=== PATIENT | female | born 1985 | race African-American/Black ===

== ENCOUNTER 2021-10-17 14:53 | Outpatient (CLI) | payer BC, SELFPAY ==
--- NOTE | ~2021-10-17 | MM_ITS ---
EXAMINATION: MM screening am[facility] BI w [facility] HISTORY: Screening mammogram TECHNIQUE: Craniocaudal and mediolateral oblique 3-D tomosynthesis images were obtained and synthetic 2-D images were generated. CAD analysis was submitted and interpreted. COMPARISON: None, baseline BREAST PARENCHYMAL COMPOSITION: There are scattered areas of fibroglandular density. FINDINGS: There is no suspicious mass, calcification, or architectural distortion to suggest malignan cy in either breast. IMPRESSION: 1. No mammographic evidence of malignancy. 2. Recommend routine screening mammography beginning at age 40. BI-RADS Category 1: Negative Reviewed, dictated and finalized at location A.
== END 2021-10-17 14:54 | disposition home or self-care (01) ==
LOC: ANHIMG 14:57
PROVIDERS: Visit Provider Internal Medicine
DX: Z12.31 Encounter for screening mammogram for malignant neoplasm of breast (principal)
CPT/HCPCS: 77063; 77067

== ENCOUNTER 2022-12-23 11:20 | Emergency (ER) | payer SELFPAY ==
--- NOTE | ~2022-12-23 | XR_ITS ---
XR ankle LT min 3V 12/23/2022 12:03 INDICATION: Left ankle pain PROCEDURE: 4 views left COMPARISON: No prior studies for comparison. FINDINGS: Fracture, dislocation or subluxation is not identified. The soft tissues appear within norm al limits. No foreign bodies are identified. Note is made of a screw in the first metatarsal. IMPRESSION: 1: NO ACUTE BONE OR JOINT ABNORMALITY IDENTIFIED. Reviewed, dictated and finalized at location B.
[2022-12-23 11:30] VITALS: BP 132/86; PULSE 92; RESP 16; TEMP 36.3; O2SAT 100
--- NOTE | 2022-12-23 12:25 | ED.LOWEXIN ---
HPI - Extremity Injury (Lower) General Chief Complaint: Extremity Injury, Lower Stated Complaint: lt/rt ankle injury Time Seen by Provider: 12/23/22 12:23 Source: patient Mode of arrival: ambulatory Limitations: no limitations History of Present Illness HPI Narrative: 37-year-old female presenting for complaint of bilateral ankle pain, left worse than right after injury yesterday. She states she fell walking out of her house. She landed on the left knee causing an abrasion, and twisted the left ankle, and caused mild pain to the right index finger only with gripping object. Endorses swelling to the left foot and ankle, pain is worse with walking. Rates pain 8/10. Denies bruising, numbness, tingling, weakness of the extremities. She has taken ibuprofen for pain. Utilizing wheelchair. Related Data Home Medications Medication Instructions Recorded Confirmed albuterol sulfate 90 mcg/actuation 2 puff inhalation QID 12/23/22 12/23/22 aerosol inhaler benzonatate 100 mg capsule 100 mg PO DAILY 12/23/22 12/23/22 ergocalciferol (vitamin D2) 1,250 1,250 mcg PO DAILY 12/23/22 12/23/22 mcg (50,000 unit) capsule famciclovir 500 mg tablet 500 mg PO DAILY 12/23/22 12/23/22 ferrous sulfate 325 mg (65 mg 325 mg PO DAILY 12/23/22 12/23/22 iron) tablet (FeroSul) fluticasone furoate 200 200 inh inhalation DAILY 12/23/22 12/23/22 mcg-vilanterol 25 mcg/dose inhalation powder (Breo Ellipta) hydrocortisone 2.5 % topical cream 2.5 applic topical BID 12/23/22 12/23/22 ipratropium 0.5 mg-albuterol 3 mg 3 ml inhalation PRN PRN Shortness 12/23/22 12/23/22 (2.5 mg base)/3 mL nebulization Of Breath soln metronidazole 500 mg tablet 500 mg PO DAILY 12/23/22 12/23/22 nystatin-triamcinolone 100,000 0.1 applic topical DAILY 12/23/22 12/23/22 unit/gram-0.1 % topical ointment omeprazole 40 mg capsule,delayed 40 mg PO DAILY 12/23/22 12/23/22 release sertraline 100 mg tablet 100 mg PO DAILY 12/23/22 12/23/22 sertraline 50 mg tablet 50 mg PO DAILY 12/23/22 12/23/22 tizanidine 4 mg tablet 4 mg PO DAILY 12/23/22 12/23/22 tramadol 50 mg tablet 50 mg PO DAILY 12/23/22 12/23/22 trazodone 100 mg tablet 100 mg PO HS 12/23/22 12/23/22 Allergies Allergy/AdvReac Type Severity Reaction Status Date / Time amoxicillin [From Amoxil] Allergy Rash Verified 12/23/22 11:31 bupropion Allergy Hives Verified 12/23/22 11:31 Review of Systems Review of Systems: CONSTITUTIONAL: Denies body aches, fever, chills EYES: Denies visual changes ENT: Denies rhinorrhea, congestion CARDIOVASCULAR: Denies chest pain, palpitations, or edema. RESPIRATORY: Denies cough or dyspnea. GASTROINTESTINAL: Denies abdominal pain, nausea, vomiting, or diarrhea. SKIN: Denies rash, itching, or wounds. MUSCULOSKELETAL: per hPI NEUROLOGIC: Denies headache, numbness, tingling, or weakness. All systems reviewed & are unremarkable except as noted in HPI and below PMFSH Past Medical History Medical History (Updated 12/23/22 @ 13:15 by Isabel Renee, LORA) No pertinent past medical history Comments At time of signature, I have reviewed and agree with nursing past medical, surgical, social and family history unless otherwise noted. Please see nursing chart for further information. There is no relevant family history pertinent to the presenting complaint Exam Narrative: GENERAL: Well-appearing, no acute distress. HEAD: Normocephalic, atraumatic. EYES: conjunctivae clear NECK: Supple. CHEST: Speaks in full sentences. No respiratory distress. HEART: Regular rate and rhythm. Normal and equal peripheral pulses. EXTREMITIES: Bilateral feet with normal strength and sensation, left ankle slightly limited range of motion with flexion/extension/rotation, endorses pain with movement. Moderate lateral ankle swelling, tender with palpation to anterior and lateral aspects of malleolus. No ecchymosis. No open wounds or obvious deformity; alignment normal, pulse palpable and e
== END 2022-12-23 12:40 | disposition home or self-care (01) ==
PROVIDERS: Emergency Provider Nurse Practitioner Family; PCP Internal Medicine
DX: S93.402A Sprain of unspecified ligament of left ankle, initial encounter (principal); W19.XXXA Unspecified fall, initial encounter
CPT/HCPCS: 73610; 99213; G0463

== ENCOUNTER 2025-02-03 09:08 | Emergency (ER) | payer OTHER, SELFPAY ==
--- NOTE | 2025-02-03 09:20 | ED.URI ---
HPI - URI/Sore Throat General Chief Complaint: Upper Respiratory Infection Stated Complaint: LOSING VOICE/HEADACHE Source: patient Mode of arrival: ambulatory Limitations: no limitations Related Data Home Medications ?Medication ?Instructions ?Recorded ?Confirmed ?Last Taken ?Type albuterol sulfate 90 mcg/actuation 2 puff inhalation QID 12/23/22 12/23/22 Unknown History aerosol inhaler benzonatate 100 mg capsule 100 mg PO DAILY 12/23/22 12/23/22 Unknown History ergocalciferol (vitamin D2) 1,250 1,250 mcg PO DAILY 12/23/22 12/23/22 Unknown History mcg (50,000 unit) capsule famciclovir 500 mg tablet 500 mg PO DAILY 12/23/22 12/23/22 Unknown History ferrous sulfate 325 mg (65 mg 325 mg PO DAILY 12/23/22 12/23/22 Unknown History iron) tablet (FeroSul) fluticasone furoate 200 200 inh inhalation DAILY 12/23/22 12/23/22 Unknown History mcg-vilanterol 25 mcg/dose inhalation powder (Breo Ellipta) hydrocortisone 2.5 % topical cream 2.5 applic topical BID 12/23/22 12/23/22 Unknown History ipratropium 0.5 mg-albuterol 3 mg 3 ml inhalation PRN PRN Shortness 12/23/22 12/23/22 Unknown History (2.5 mg base)/3 mL nebulization Of Breath soln metronidazole 500 mg tablet 500 mg PO DAILY 12/23/22 12/23/22 Unknown History nystatin-triamcinolone 100,000 0.1 applic topical DAILY 12/23/22 12/23/22 Unknown History unit/gram-0.1 % topical ointment omeprazole 40 mg capsule,delayed 40 mg PO DAILY 12/23/22 12/23/22 Unknown History release sertraline 100 mg tablet 100 mg PO DAILY 12/23/22 12/23/22 Unknown History sertraline 50 mg tablet 50 mg PO DAILY 12/23/22 12/23/22 Unknown History tizanidine 4 mg tablet 4 mg PO DAILY 12/23/22 12/23/22 Unknown History tramadol 50 mg tablet 50 mg PO DAILY 12/23/22 12/23/22 Unknown History trazodone 100 mg tablet 100 mg PO HS 12/23/22 12/23/22 Unknown History Allergies Allergy/AdvReac Type Severity Reaction Status Date / Time amoxicillin (From Amoxil) Allergy Rash Verified 02/07/25 07:38 bupropion Allergy Hives Verified 02/07/25 07:38 Review of Systems Review of Systems: CONSTITUTIONAL: Denies body aches, fever, chills, or sweats. Reports EYES: Denies visual changes, redness, or discharge. ENT: Reports rhinorrhea, congestion, sore throat, or otalgia. CARDIOVASCULAR: Denies chest pain, palpitations, or edema. RESPIRATORY: Reports cough or dyspnea. GASTROINTESTINAL: Denies abdominal pain, nausea, vomiting, or diarrhea. GENITOURINARY: Denies dysuria or hematuria. SKIN: Denies rash, itching, or wounds. MUSCULOSKELETAL: Denies back pain, joint pain, or myalgia. NEUROLOGIC: Denies headache, numbness, tingling, or weakness. PSYCH: Denies depression or anxiety. [facility] Past Medical History Medical History (System 02/07/25 @ 07:38 by Ashley Arzate) No pertinent past medical history Comments At time of signature, I have reviewed and agree with nursing past medical, surgical, social and family history unless otherwise noted. Please see nursing chart for further information. There is no relevant family history pertinent to the presenting complaint. Exam Narrative: GENERAL: Well-appearing, well-nourished, and in no acute distress. EYES: EOMI. No redness or drainage. Conjunctivae normal. ENT: Mucous membranes pink and moist. Nares clear. No rhinorrhea. TMs normal bilaterally. Throat Erythematous, tonsillar exudate, uvula midline. nasal congestion noted. NECK: Normal AROM. Supple. No lymphadenopathy. CHEST: No respiratory distress. Clear to auscultation. HEART: Regular rate and rhythm. No murmur appreciated. Normal peripheral pulses. ABDOMEN: Soft, nontender, nondistended, normal active bowel sounds. SKIN: Warm, dry, no rash. Capillary refill normal. Normal skin turgor. NEURO: No focal deficits. Alert and oriented x3. Gait steady. PSYCH: Normal affect. No signs of depression or anxiety. Course Course Level of Care: Express Care Visit Vital Signs Vital signs: Vital Signs Temperature 98 F 02/03/25 09:23 Pulse Rate 73 02/03/25 09:23 Respiratory Rate 18 02/03/25 09:23 Blood Pressure 112/78 02/03/25 09:23 Pulse Oximetry 100 02/03/25 09:23 Oxygen Delivery Room Air 02/03/25 09:23 Temperature 98 F 02/03/25 09:23 Pulse Rate 73 02/03/25 09:23 Respiratory Rate 18 02/03/25 09:23 Blood Pressure 112/78 02/03/25 09:23 Pulse Oximetry 100 02/03/25 09:23 Oxygen Delivery Room Air 02/03/25 09:23 MDM - URI/Sore Throat MDM Narrative Medical decision making narrative: Discussed physical exam findings. Advised supportive measures and signs/symptoms to go to the ER. Pt is appropriate for outpt treatment and follow up. Critical Care Time Critical Care Time Critical Care Time: No Discharge Plan Discharge Clinical Impression: Sinusitis Patient Disposition: Home Condition: Stable Instructions: Antibiotic Form, Sinusitis (ED) Additional Instructions: Take antibiotic as prescribed. Take steroid as prescribed. Recommend Flonase spray and Zyrtec (or Claritin/Alana) over the counter Cough syrup may cause drowsiness; avoid driving or take it at night time. Tylenol 1000mg every 8 hours as needed for pain Symptomatic treatment includes: rest, fluids, and increase humidity of the air at home. Follow up with your primary care provider in 1 week. Go to the ER for worsening symptoms or concerns. Patient Language: Luxembourgish Prescriptions: New doxycycline hyclate 100 mg capsule 100 mg PO BID 7 Days Qty: 14 0RF prednisone 20 mg tablet 40 mg PO DAILY 5 Days Qty: 10 0RF No Action ipratropium-albuterol 0.5 mg-3 mg(2.5 mg base)/3 mL solution for nebulization 3 ml INHALATION PRN PRN (Reason: Shortness Of Breath) tizanidine 4 mg tablet 4 mg PO DAILY sertraline 100 mg tablet 100 mg PO DAILY metronidazole 500 mg tablet 500 mg PO DAILY omeprazole 40 mg capsule,delayed release(DR/EC) 40 mg PO DAILY tramadol 50 mg tablet 50 mg PO DAILY nystatin-triamcinolone 100,000-0.1 unit/gram-% ointment 0.1 applic TOPICAL DAILY famciclovir 500 mg tablet 500 mg PO DAILY trazodone 100 mg tablet 100 mg PO HS benzonatate 100 mg capsule 100 mg PO DAILY ferrous sulfate [FeroSul] 325 mg (65 mg iron) tablet 325 mg PO DAILY hydrocortisone 2.5 % cream 2.5 applic TOPICAL BID ergocalciferol (vitamin D2) 1,250 mcg (50,000 unit) capsule 1,250 mcg PO DAILY albuterol sulfate 90 mcg/actuation HFA aerosol inhaler 2 puff INHALATION QID sertraline 50 mg tablet 50 mg PO DAILY fluticasone furoate-vilanterol [Breo Ellipta] 200-25 mcg/dose blister with device 200 inh INHALATION DAILY ibuprofen 800 mg tablet 800 mg PO TID PRN (Reason: pain) Qty: 15 0RF Interventions: Discharge Disposition Last Done: 02/03/25 09:35 Follow-up/Referrals: Angie,MD Barrett [Primary Care Provider] - Stand Alone Forms: Work/School Release IP Time of Disposition: :29 Discharge Date/Time: 02/03/25 09:35
[2025-02-03 09:23] VITALS: BP 112/78; PULSE 73; RESP 18; TEMP 36.6; O2SAT 100
== END 2025-02-03 09:35 | disposition home or self-care (01) ==
PROVIDERS: PCP Internal Medicine
DX: J01.00 Acute maxillary sinusitis, unspecified (principal)
CPT/HCPCS: 99213; G0463